=== PATIENT | female | born 1965 | race Caucasian/White ===

== ENCOUNTER 2017-08-13 09:33 | Day surgery (SDC) | payer BC ==
[~2017-08-13 09:33] MED LIST: Buffered Lidocaine 0.9% SYRIN* 5 ML/SYR SYRINGE INTRADERM ONE; Famotidine IV* 10 MG/ML 2 ML (20 mg) IV ONE; Scopolamine 1.5 mg* PATCH TRANSDERM SCH
[2017-08-13] MEDS ORDERED: ceFAZolin 2 GM PREMIX (*) 2 GM/50 ML BAG IVPB ONE (09:43)
[2017-08-13] MEDS ORDERED: Buffered Lidocaine 0.9% SYRIN* 5 ML/SYR SYRINGE ONE (09:43)
[2017-08-13] MEDS ORDERED: Famotidine IV* 10 MG/ML 2 ML (20 mg) ONE (09:43)
[2017-08-13] MEDS ORDERED: Scopolamine 1.5 mg* PATCH ONE (09:43)
[2017-08-13] MEDS ORDERED: fentaNYL* 50 MCG/ML 2 ML VIAL (100 MCG VIAL) ONE (09:52)
[2017-08-13] MEDS ORDERED: Midazolam* 1 MG/ML 2 ML VIAL (2 MG) ONE (09:52)
[2017-08-13] MEDS ORDERED: Ketorolac INJ* 30 MG/ML 1 ML VIAL ONE (09:53)
[2017-08-13] MEDS ORDERED: Ondansetron INJ* 2 MG/ML VIAL ONE (09:53)
[2017-08-13] MEDS ORDERED: Dexamethasone IV* 4 MG/ML 1 ML (4 MG) ONE (09:53)
[2017-08-13] MEDS ORDERED: Lidocaine 2% PF * 5 ML VIAL ONE (09:53)
[2017-08-13] MEDS ORDERED: Propofol* 10 MG/ML 20 ML BTL IV PUSH ONE (09:53)
[2017-08-13] MEDS ORDERED: HYDROmorphone INJ* 1 MG/ML CARPUJECT SYRINGE ONE (10:02)
[2017-08-13] MEDS ORDERED: Bupivacaine 0.5% SDV PF* 10-30ML VIAL ONE ×2 (10:50→10:51)
[2017-08-13] MEDS ORDERED: Acetaminophen TAB* 325 MG PO PRN (11:22)
[2017-08-13] MEDS ORDERED: oxyCODONE TAB* 5 MG TAB PO PRN (11:22)
[2017-08-13] MEDS ORDERED: DiMENhydriNATE IV* 50 MG/ML VIAL IV PUSH PRN (11:22)
[2017-08-13] MEDS ORDERED: HYDROmorphone INJ* 1 MG/ML CARPUJECT SYRINGE IV PRN (11:22)
[2017-08-13 13:10] VITALS: BP 113/88
--- NOTE | 2017-08-14 13:40 | OP ---
DATE OF OPERATION: 08/13/17 - [facility] DATE OF : 67 ATTENDING SURGEON: Micheal Escalante MD. CONCRETE CONVEYOR OPERATOR: PACO Maurice. PRE-OP DIAGNOSIS: Right hallux rigidus. POST-OP DIAGNOSIS: Right hallux rigidus with full thickness cartilage defect of the mid portion of the metatarsal head. OPERATIVE PROCEDURE: Cheilectomy with interpositional arthroplasty of Cartiva 8 mm plug. DESCRIPTION OF PROCEDURE: Patient was taken to the operating room. Longitudinal incision was made over the first MTP joint. Dorsal osteophyte removed from the dorsal aspect of the first metatarsal. We examined the metatarsal head articular cartilage and noted a 8 x 12 mm oval full thickness defect in the medial third of the joint surface. This was drilled with an 8 mm Cartiva reamer and then the Cartiva implant was placed. It was about 2.5 mm proud. We irrigated thoroughly and closing 3-0 Vicryl sutures for the subcu and 4-0 nylon sutures for the skin. A compression dressing applied. [id number]/[facility] #: [id number] MTDD
== END 2017-08-13 13:11 | disposition home or self-care (01) ==
LOC: OR 09:33
PROVIDERS: ATTEND Orthopaedic Surgery
DX: M20.21 Hallux rigidus, right foot (principal); Z87.891 Personal history of nicotine dependence
CPT/HCPCS: A9270-GY; C1776; J0690; J1100; J1170; J1885; J2250; J2405; J2704; J3010

== ENCOUNTER 2019-04-05 14:18 | Emergency (ER) | payer BC, OTHER ==
[2019-04-05 14:30] VITALS: BP 108/69
[2019-04-05] MEDS ORDERED: Benzoin Compound STICK TOPICAL ONE (14:42)
--- NOTE | 2019-04-05 14:53 | UC ---
Laceration HPI - HPI Summary HPI Summary: 53-year-old female presents for laceration to her right lower leg that occurred just prior to arrival. States she was helping a friend move and she accidentally cut her leg on a piece of slate that was sticking out of a box. Bleeding controlled with direct pressure prior to arrival. Last tetanus April 2018. - History Of Current Complaint Chief Complaint: UCLaceration Stated Complaint: LEG LAC Time Seen by Provider: 04/05/19 14:28 Hx Obtained From: Patient Hx Last Menstrual Period: post menopause Pain Intensity: 0 - Allergies/Home Medications Allergies/Adverse Reactions: Allergies Allergy/AdvReac Type Severity Reaction Status Date / Time DAIRY Allergy SEE BELOW Uncoded 08/13/17 09:58 PMH/Surg Hx/FS Hx/Imm Hx Previously Healthy: Yes - Denies significant PMH Other History Of: Negative For: HIV, Hepatitis B, Hepatitis C, Anticoagulant Therapy - Surgical History Surgical History: Yes Surgery Procedure, Year, and Place: cartiva implant and bone spur shaving. LEFT TIBIAL FRACTURE,. RIGHT CARPEL TUNNEL. TONSILS. LEFT BREAST BIOPSY 2012. left tibial plastic surgery, 1998 - Family History Known Family History: Positive: Hypertension Negative: Cardiac Disease - Social History Occupation: Employed Full-time Lives: With Family Alcohol Use: None Substance Use Type: None Smoking Status (MU): Former Smoker Amount Used/How Often: pack a day for 13 yrs When Did the Patient Quit Smoking/Using Tobacco: 1992 - Immunization History Most Recent Tetanus Shot: Apr 2018 Review of Systems All Other Systems Reviewed And Are Negative: Yes Constitutional: Positive: Negative Skin: Positive: Other - See HPI Respiratory: Positive: Negative Cardiovascular: Positive: Negative Gastrointestinal: Positive: Negative Genitourinary: Positive: Negative Musculoskeletal: Positive: Negative Neurological: Positive: Negative Is Patient Immunocompromised?: No Physical Exam - Summary Physical Exam Summary: GENERAL APPEARANCE: Well developed, well nourished, alert and cooperative, and appears to be in no acute distress. CARDIAC: Normal S1 and S2. No S3, S4 or murmurs. Rhythm is regular. There is no peripheral edema, cyanosis or pallor. Extremities are warm and well perfused. Capillary refill is less than 2 seconds. Peripheral pulses intact. LUNGS: Clear to auscultation without rales, rhonchi, wheezing or diminished breath sounds. ABDOMEN: Positive bowel sounds. Soft, nondistended, nontender. No guarding or rebound. No masses or hepatosplenomegally. MUSKULOSKELETAL: ROM intact to all extremities. No joint erythema or tenderness. Normal muscular development. Normal gait. EXTREMITIES: Superficial linear laceration to the medial aspect of her right calf. Bleeding controlled. SKIN: Skin normal color, texture and turgor. Triage Information Reviewed: Yes Vital Signs: Initial Vital Signs Temp 98.3 F 04/05/19 14:25 Pulse 63 04/05/19 14:25 Resp 16 04/05/19 14:25 BP 108/69 04/05/19 14:25 Pulse Ox 99 04/05/19 14:25 Vital Signs Reviewed: Yes Laceration Repair - Laceration Repair 1 Description: Linear Laceration Size After Repair: Length (cm) - 4 cm Modified For Repair: No Irrigation With Pressure Irrigation Device: Yes Closure Material: Skin Adhesive, SteriStrips Laceration Course/Dx - Course/Dx Course Of Treatment: 53-year-old female presents for laceration to her right lower leg that occurred just prior to arrival. States she was helping a friend move and she accidentally cut her leg on a piece of slate that was sticking out of a box. Bleeding controlled with direct pressure prior to arrival. Last tetanus April 2018. Afebrile. VSS. Patient had a superficial linear laceration to the medial aspect of her right calf. Bleeding controlled. The wound was copiously irrigated with sterile saline by the RN prior to wound repair. The wound margins were approximated with three 1/4 in SteriStrips and then a skin adhesive was used. Total length of wound after repair was 4 cm. Wound care, anticipatory guidance, and warning symptoms were reviewed with the patient. Verbalizes understanding and agrees with POC. - Differential Dx - Laceration/Wound Differental Diagnoses: Foreign Body, Laceration - Diagnosis Provider Diagnosis: Laceration of right lower leg Discharge ED - Sign-Out/Discharge Documenting (check all that apply): Patient Departure All imaging exams completed and their final reports reviewed: No Studies - Discharge Plan Condition: Stable Disposition: HOME Patient Education Materials: Laceration (ED), Skin Adhesive Care (ED), Steristrips (ED) Referrals: Cherelle Larios MD [Primary Care Provider] - Additional Instructions: Your laceration as repaired with a combination of skin adhesive and Steri- Strips. The adhesive will slowly wear off over the next several days. Keep the adhesive dry for the next 24 hours. After 24 hours you may shower as usual. Do not apply any lotions or ointments to the adhesive as this may dissolve the adhesive and cause the wound to reopen. The Steri-Strips will slowly peel up from the ends over the next few days. You may trim the ends as needed but do not pull off or you may reopen the wound. Keep the wound covered with a dressing. Change this at least once a day or anytime the dressing becomes wet or soiled. Take acetaminophen (Tylenol) or ibuprofen (Advil, Motrin) according to directions as needed for pain. Watch for signs of infection including fever greater than 100.5 F, severe pain not managed with with pain medicine, redness that spreads, swelling of the finger, pus draining from the wound, or any worsening of symptoms. Seek immediate medical attention if any of these occur. - Billing Disposition and Condition Condition: STABLE Disposition: Home
== END 2019-04-05 15:00 | disposition home or self-care (01) ==
LOC: UCEAST 14:18
DX: S81.811A Laceration without foreign body, right lower leg, initial encounter (principal); W26.9XXA Contact with unspecified sharp object(s), initial encounter; Y92.9 Unspecified place or not applicable; Z87.891 Personal history of nicotine dependence
CPT/HCPCS: 12002; 99211; G0463